=== PATIENT | female | born 1955 | race Caucasian/White ===

== ENCOUNTER 2017-02-08 05:54 | Inpatient (IN) | payer OTHER ==
[2017-02-08] MEDS ORDERED: LR 1,000 ML IV ONE (06:29)
[2017-02-08] MEDS ORDERED: THROMBIN (BOVINE) 5,000 UNIT VIAL TP ONE (06:32)
[2017-02-08] MEDS ORDERED: BUPIVACAINE/EPI 0.25% 30 ML SDV ONE (06:33)
[2017-02-08] MEDS ORDERED: BACITRACIN 50,000 UNITS/10 ML SYR IRR ONE (06:33)
[2017-02-08] MEDS ORDERED: DEXMEDETOMIDINE HCL 400 MCG in NS 100 ML IV SCH (07:00)
[2017-02-08] MEDS ORDERED: TRANEXAMIC ACID 800 MG in NS 100 ML IV ONE ×2 (07:00→07:30)
[2017-02-08] MEDS ORDERED: HYDROmorphONE/DILAUDID 2 MG/ML INJ ONE (07:18)
[2017-02-08] MEDS ORDERED: PROPOFOL/EMULSION 500 MG/50 ML BOTTLE IV ONE ×3 (07:18→11:50)
[2017-02-08] MEDS ORDERED: traMADol 50 MG TAB PO PRN (07:34)
[2017-02-08] MEDS ORDERED: HYOSCYAMINE SULFATE 0.125 MG TAB PO PRN (07:34)
[2017-02-08] MEDS ORDERED: ACETAMINOPHEN 325 MG TAB PO PRN (07:35)
[2017-02-08] MEDS ORDERED: MAGNESIUM HYDROXIDE 30 ML UDCUP PO PRN (07:35)
[2017-02-08] MEDS ORDERED: DIAZEPAM 5 MG TAB PO PRN (07:35)
[2017-02-08] MEDS ORDERED: HYDROmorphONE/DILAUDID 1 MG/ML SYR IVP PRN (07:35)
[2017-02-08] MEDS ORDERED: ONDANSETRON 4 MG/2 ML VIAL IVP PRN (07:35)
[2017-02-08] MEDS ORDERED: TEMAZEPAM 15 MG CAP PO PRN (07:35)
[2017-02-08] MEDS ORDERED: NALOXONE HCL 0.4 MG/ML INJ IVP PRN (07:35)
[2017-02-08] MEDS ORDERED: HYDROmorphONE/DILAUDID 6 MG/30 ML PCA IV PRN (07:35)
[2017-02-08] MEDS ORDERED: POLYETHYLENE GLYCOL 3350 17 GM PKT PO PRN (07:35)
[2017-02-08] MEDS ORDERED: diphenhydrAMINE 25 MG CAP PO PRN (07:35)
[2017-02-08] MEDS ORDERED: DIAZEPAM 10 MG/2 ML SYR IVP PRN (07:35)
[2017-02-08] MEDS ORDERED: ONDANSETRON DISINTEGRATING 4 MG TAB PO PRN (07:35)
[2017-02-08] MEDS ORDERED: BISACODYL 10 MG SUPP PR PRN (07:35)
[2017-02-08] MEDS ORDERED: LACTULOSE 20 GM/30 ML UDCUP PO PRN (07:35)
[2017-02-08] MEDS ORDERED: NS W/ 20 KCl/L 1,000 ML IV SCH (07:45)
[2017-02-08] MEDS ORDERED: ceFAZolin 2 GM/DEXTROSE 100 ML IV ONE (08:00)
[2017-02-08] MEDS ORDERED: ROCURONIUM 50 MG/5 ML VIAL ONE (08:00)
[2017-02-08] MEDS ORDERED: DEXAMETHASONE 4 MG/ML VIAL ONE ×2 (08:00)
[2017-02-08] MEDS ORDERED: epHEDrine SULFATE 10 MG/ML SYR ONE (08:01)
[2017-02-08] MEDS ORDERED: NON-FORMULARY NEW DRUG (Omeprazole [Omeprazole] 40 MG) PO SCH (09:00)
[2017-02-08] MEDS ORDERED: PROPOFOL 200 MG/20 ML VIAL ONE (10:35)
[2017-02-08] MEDS ORDERED: ONDANSETRON 4 MG/2 ML VIAL ONE (11:38)
--- NOTE | 2017-02-08 13:00 | SOAPPROG ---
SOAP Progress Note Assessment/Plan: Post Op Visit: S: Awake and alert. NAD. Pt with expected lower back pain O: AFVSS/PERRLA/EOMI no droop CN 2-12 grossly intact +lt touch 5/5 BUE/BLE = CDI SHIVA in place A/P: 61 yo female that is s/p TLIF at L4/5 and L5/S1 -orders in place -call with any questions or concerns -take medications as directed -pt seen by Dr Martinez as well 02/08/17 12:57 Objective: Vital Signs Temp Pulse Resp BP Pulse Ox 14 81/59 L 98 02/08/17 12:50 02/08/17 12:46 02/08/17 12:50 02/07/17 02/08/17 02/09/17 05:59 05:59 05:59 Intake Total 1400 Output Total 540 Balance 860 ICD10 Worksheet Patient Problems: Problems Problem Status Onset Arthrodesis status Acute Lumbar radicular pain Acute Lumbar stenosis Acute - ICD10 Problem Qualifiers (1) Lumbar stenosis (2) Lumbar radicular pain (3) Arthrodesis status
[2017-02-08] MEDS ORDERED: fentaNYL 100 MCG/2 ML INJ ONE (13:39)
[2017-02-08] MEDS ORDERED: HYDROCODONE/APAP 10/325 TAB ONE ×2 (13:40→18:20)
[2017-02-08] MEDS ORDERED: NALOXONE HCL 0.4 MG/ML INJ ONE (14:02)
--- NOTE | 2017-02-08 14:17 | GOP ---
[f rep st] OPERATIVE REPORT DATE OF OPERATION: 02/08/2017 SURGEON: Varun Martinez MD RUBBER DOWN: Idris Stone PA-C PREOPERATIVE DIAGNOSIS: Lumbar spondylolisthesis L4-5, severe facet arthropathy bilaterally at L4-5 . Prior surgery, right L5-S1. Lumbar degenerative disk disease L4-5, L5-S1. Right synovial cyst L 4-5. POSTOPERATIVE DIAGNOSIS: Lumbar spondylolisthesis L4-5, severe facet arthropathy bilaterally at L4- 5. Prior surgery, right L5-S1. Lumbar degenerative disk disease L4-5, L5-S1. Right synovial cyst L4-5. PROCEDURE PERFORMED: Posterolateral and intervertebral arthrodesis L4-5, L5-S1 with decompression b ilaterally at L4-5 and left-side L5-S1 (21628, [id number]), posterior segmental instrumentation L4, L5, S 1 ([id number]), placement of biomechanical intervertebral device L4-5, L5-S1, same incision bone graft de jesus rvest, microscope, spinal stereotaxy. FINDINGS: ESTIMATED BLOOD LOSS: 200 cc. INDICATIONS: The patient is a 61-year-old with a prior history of a right L5-S1 microdiskectomy, pr esented with terrible right leg pain, more so than left, with spondylolisthesis at L4-5 and a large right synovial cyst. She had a prior right hemilaminectomy at L5-S1, and a small central disk protr usion there, but collapse of the neural foramen and disk space at L5-S1 and spondylolisthesis at L4- 5, and I suggested a 2-level fusion. The risk of nerve injury, spinal fluid leak, continued symptom s, pseudoarthrosis, and the possible need for future surgery and adjacent segment disease was discus sed. She knew there was a chance surgery would fail to eliminate her symptoms, and she wanted to pr oceed despite these risks. DESCRIPTION OF PROCEDURE: The patient was taken to the operating room, placed in supine position. General anesthesia was begun. She was flipped prone onto the Nadir table. Care was taken to pad all points of contact. Her back was sterilely prepped and draped in usual fashion. The O-arm was i ntroduced sterilely on the field. We made a 6 cm incision above the L4-5, L5-S1 interspace. The subcutaneous tissue was dissected usi ng Bovie cautery down through the fascia, and a subperiosteal dissection was made down the L4-5, S1 lamina. There was a right hemilaminectomy at L5-S1. We exposed the transverse processes of L4, L5, and sacrum, denuded the L4-5, L5-S1 facet joints, and decorticated them for a posterolateral arthro desis. We tested Stealth reference frame, and using frameless Stealth stereotaxy, we placed pedicle screws bilaterally at L4, L5, and the sacrum. They all stimulated at acceptable levels. We used 3 D imaging to confirm their position within the pedicles, and there was no evidence of breach. We then took 55 mm rods, placed them down over the screws, reduced the kevin into the L4 screw, which reduced the spondylolisthesis by a few millimeters. We distracted L4-5 and the sacrum, and removed all the soft tissue, the bone, L4-5 and the sacrum, harvested the inferior L4 spinous process for au tologous grafting purposes, harvested the entire L5 spinous process for autologous grafting purposes . Under the scope, we did a bilateral laminectomy of L4-L5, and decompressed the thecal sac, and a lef t hemilaminectomy at L5-S1. A nice decompression was obtained, and we worked our way up toward L4-5 and on the left-hand side; a great decompression was obtained there. There was severe stenosis. On the right-hand side, there was a large synovial cyst, and it was firmly adherent to the dura and could not be totally . We worked our way into the neural foramen, identified the exiting L 4 nerve root, decompressed the traversing L5 root, and then removed all the contents of the synovial cyst, and left the ventral portion of the cyst where it was stuck to the dura and allowed it to rem ain on the dura itself. Under the scope, we removed the L4-5 disk, removed the cartilaginous endpla hugo, roughened the subchondral bone to create arthrodesis. We sized the space and chose a 9 x 28 mm expandable device for that space. We then did likewise fro m the left-hand side at L5-S1. We removed the disk and the cartilaginous endplates. We sized the s pace and chose a 7 x 23 mm expandable device for that level. We packed bone autograft in both disk spaces and a BMP sponge, and we then inserted the devices and expanded them under fluoroscopic gris nce. They were in excellent position. We were happy with the devices, and they were well away from the nerve root. We confirmed this both visually and with fluoroscopic images. We then finished decorticating all the remaining posterolateral bone bilaterally, placed a subfascia l drain, and then closed the incision in multiple layers using Vicryl sutures. Running PDS was plac ed in the skin itself. There was no complication. COMPLICATIONS: None. HARDWARE USED: [employer] Solera pedicle screws. /[id number]/MODL
[2017-02-08] MEDS ORDERED: DIAZEPAM 10 MG/2 ML SYR ONE (14:55)
[2017-02-08] MEDS ORDERED: METHOCARBAMOL 750 MG TAB ONE ×2 (14:55→18:37)
[2017-02-08] MEDS ORDERED: CEFAZOLIN 1 GM/DEXTROSE/50 ML BAG IV ONE (15:55)
[2017-02-08] MEDS ORDERED: HYDROmorphONE/DILAUDID 1 MG/ML SYR ONE (16:27)
[2017-02-08] MEDS: morphINE SR 15 MG TAB PO SCH ×2 (19:37→21:02)
[2017-02-08] MEDS: GABAPENTIN 300 MG CAP PO SCH ×2 (19:37→21:01)
[2017-02-08] MEDS: LEFLUNOMIDE 20 MG TAB PO SCH (19:37)
[2017-02-08] MEDS: FAMOTIDINE 20 MG/NACL 50 ML IV SCH ×2 (19:37→21:02)
[2017-02-08] MEDS: ATORVASTATIN CALCIUM 40 MG TAB PO SCH (19:37)
[2017-02-08] MEDS: CYCLOSPORINE 0.05% 1 EACH BOX EACHEYE SCH ×2 (19:37→21:08)
[2017-02-08] MEDS: traMADol 50 MG TAB PO SCH (19:38)
[2017-02-08] MEDS: PSYLLIUM HUSK PO SCH (19:38)
[2017-02-08] MEDS: SENNOSIDES/DOCUSATE SODIUM TAB PO SCH ×2 (19:38→21:01)
[2017-02-08] MEDS: SERTRALINE HCL 50 MG TAB PO SCH (19:38)
[2017-02-08] MEDS: HYDROCODONE/APAP 10/325 TAB PO PRN (21:00)
[2017-02-08] MEDS: ACETAMN/DIPHENHYDRAMINE 500/25MG TAB PO SCH (21:01)
[2017-02-09] MEDS: HYDROCODONE/APAP 10/325 TAB PO PRN ×7 (00:29→20:53)
[2017-02-09] MEDS: METHOCARBAMOL 750 MG TAB PO PRN ×4 (00:30→18:17)
[2017-02-09 05:16] LABS: % IMMATURE GRANULYOCYTES 0.5 % (0.0-1.1); ABSOLUTE IMMATURE GRANULOCYTES 0.05 10^3/uL (0.00-0.10); ADD DIFF? NO; ADD MORPH? NO; ADD SCAN? NO; ATYPICAL LYMPHOCYTE FLAG 0 (0-99); FRAGMENT RBC FLAG 0 (0-99); HEMATOCRIT 30.7 % (38.0-47.0); HEMOGLOBIN 9.6 g/dL (12.6-16.3); LEFT SHIFT FLG 0 (0-99); LIPEMIA HEMOLYSIS FLAG 80 (0-99); MEAN CELL HEMOGLOBIN 28.6 pg (27.9-34.1); MEAN CELL HEMOGLOBIN CONCENTR. 31.3 g/dL (32.4-36.7); MEAN CELL VOLUME 91.4 fL (81.5-99.8); MEAN PLATELET VOLUME 11.1 fL (8.7-11.7); PLATELET CLUMPS FLAG 0 (0-99); PLATELET COUNT 215 10^3/uL (150-400); RED BLOOD CELL COUNT 3.36 10^6/uL (4.18-5.33); RED CELL DISTRIBUTION WIDTH 13.6 % (11.5-15.2)
[2017-02-09 05:33] LABS: ANION GAP 7 mEq/L (8-16); CALCIUM 8.6 mg/dL (8.5-10.4); CARBON DIOXIDE 24 mEq/l (22-31); CHLORIDE 109 mEq/L (97-110); CREATININE 0.7 mg/dL (0.6-1.0); GLOMERULAR FILTRATION RATE > 60; GLUCOSE 96 mg/dL (70-100); POTASSIUM 4.5 mEq/L (3.5-5.2); SODIUM 140 mEq/L (134-144)
[2017-02-09] MEDS: oxyCODONE IR 5 MG TAB PO PRN ×2 (05:47→16:10)
[2017-02-09] MEDS: traMADol 50 MG TAB PO SCH (08:48)
[2017-02-09] MEDS: morphINE SR 15 MG TAB PO SCH ×2 (08:48→20:53)
[2017-02-09] MEDS: CYCLOSPORINE 0.05% 1 EACH BOX EACHEYE SCH ×2 (08:50→21:14)
[2017-02-09] MEDS: ATORVASTATIN CALCIUM 40 MG TAB PO SCH (08:50)
[2017-02-09] MEDS: GABAPENTIN 300 MG CAP PO SCH ×2 (08:51→20:53)
[2017-02-09] MEDS: FAMOTIDINE 20 MG TAB PO SCH ×2 (08:51→20:53)
[2017-02-09] MEDS: PANTOPRAZOLE SODIUM 40 MG TAB PO SCH (08:51)
[2017-02-09] MEDS: SENNOSIDES/DOCUSATE SODIUM TAB PO SCH ×2 (08:51→20:53)
[2017-02-09] MEDS: SERTRALINE HCL 50 MG TAB PO SCH (08:51)
[2017-02-09] MEDS: PSYLLIUM HUSK PO SCH (08:52)
[2017-02-09] MEDS ORDERED: NON-FORMULARY NEW DRUG (Omeprazole [Omeprazole] 40 MG) PO SCH (09:00)
--- NOTE | 2017-02-09 09:16 | NEUSURGPN ---
Assessment/Plan: S: Doing well. Has some residual leg pain and some hand numbness that is getting better. Had a rough night but better when sitting. Voiding well. O: AFVSS/PERRLA/EOMI +lt touch 5/5 BUE/BLE = CDI SHIVA in place A/P: 61 yo female that is s/p TLIF at L4/5 and L5/S1 -Neuro stable and doing well -Optimize pain management -X-rays pending today -Remove SHIVA today -PT/OT -Dispo later today or more likely tomorrow after cleared by therapies -pt seen by Dr Martinez as well Catheter Insertion Date: 02/08/17 - Physician Discussed Patient with : Juan Patient Seen by : Juan Neurosurgery Physical Exam - Vitals, I&O, Labs I and O 02/08/17 02/09/17 02/10/17 05:59 05:59 05:59 Intake Total 3655 Output Total 3040 250 Balance 615 -250 Weight 80.286 kg Intake: Oral (ml) 480 IV Intake (ml) 2400 IV Infused (ml) 775 Famotidine 20 mg/NaCl 50 50 ml @ 200 mls/hr IV Q12HRS JANET Rx#:[id number] NS W/ 20 KCl/L 1,000 ml @ 675 75 mls/hr IV CONT JANET Rx #:[id number] ceFAZolin 1 GM/DEXTROSE 50 50 ml @ 200 mls/hr IV Q8HRS JANET Rx#:[id number] Output: Urine (ml) 2610 250 Bedside Commode 250 Catheter 2610 Estimated Blood Loss (ml) 200 Wound Drainage (ml) 230 Back Nadir Miranda 230 Other: Number of Voids Bedside Commode 1 Vital Signs Temp Pulse Resp BP Pulse Ox 37.2 C 72 16 138/85 H 98 02/09/17 07:40 02/09/17 07:40 02/09/17 07:40 02/09/17 07:40 02/09/17 07:40 Laboratory Results 02/09/17 04:35 02/09/17 04:35 ICD10 Worksheet Patient Problems: Problems Problem Status Onset Arthrodesis status Acute Lumbar radicular pain Acute Lumbar stenosis Acute
[2017-02-09] MEDS: LEFLUNOMIDE 20 MG TAB PO SCH (11:43)
[2017-02-09] MEDS: ACETAMN/DIPHENHYDRAMINE 500/25MG TAB PO SCH (21:14)
[2017-02-10] MEDS: HYDROCODONE/APAP 10/325 TAB PO PRN ×2 (00:59→06:12)
[2017-02-10] MEDS: METHOCARBAMOL 750 MG TAB PO PRN ×2 (00:59→08:19)
[2017-02-10 07:35] VITALS: BP 110/68; PULSE 88; RESP 14; TEMP 98.9; O2SAT 92
--- NOTE | 2017-02-10 07:53 | NEUSURGPN ---
Date of Surgery: 02/08/17 Post Op Day: 2 Assessment/Plan: 61 yo female that is s/p TLIF at L4/5 and L5/S1 -Neuro stable and doing well -pain controlled -X-rays stable -PT/OT -Wear brace when out of bed -Discharge to home today Subjective: Sitting up in chair this morning. No LE symptoms. Doing well. Objective: Awake. Alert. PERRL. EOMI Following commands Muscle strength full at 5/5 Sensation intact incision with dressing c/d/i Catheter Insertion Date: 02/08/17 - Physician Discussed Patient with Dr.: Juan Neurosurgery Physical Exam - Vitals, I&O, Labs I and O 02/09/17 02/10/17 02/11/17 05:59 05:59 05:59 Intake Total 3655 300 Output Total 3040 650 Balance 615 -350 Weight 80.286 kg Intake: Oral (ml) 480 300 IV Intake (ml) 2400 IV Infused (ml) 775 Famotidine 20 mg/NaCl 50 50 ml @ 200 mls/hr IV Q12HRS JANET Rx#:[id number] NS W/ 20 KCl/L 1,000 ml @ 675 75 mls/hr IV CONT JANET Rx #:[id number] ceFAZolin 1 GM/DEXTROSE 50 50 ml @ 200 mls/hr IV Q8HRS JANET Rx#:[id number] Output: Urine (ml) 2610 650 Bedside Commode 250 Catheter 2610 Toilet 400 Estimated Blood Loss (ml) 200 Wound Drainage (ml) 230 Back Nadir Miranda 230 Other: Number of Voids Bedside Commode 1 Toilet 3 Vital Signs Temp Pulse Resp BP Pulse Ox 37.2 C 88 14 110/68 92 02/10/17 07:34 02/10/17 07:34 02/10/17 07:34 02/10/17 07:34 02/10/17 07:34 Laboratory Results 02/09/17 04:35 02/09/17 04:35 ICD10 Worksheet Patient Problems: Problems Problem Status Onset Arthrodesis status Acute Lumbar radicular pain Acute Lumbar stenosis Acute
[2017-02-10] MEDS: SENNOSIDES/DOCUSATE SODIUM TAB PO SCH (08:17)
[2017-02-10] MEDS: LEFLUNOMIDE 20 MG TAB PO SCH (08:17)
[2017-02-10] MEDS: PANTOPRAZOLE SODIUM 40 MG TAB PO SCH (08:18)
[2017-02-10] MEDS: FAMOTIDINE 20 MG TAB PO SCH (08:18)
[2017-02-10] MEDS: morphINE SR 15 MG TAB PO SCH (08:18)
[2017-02-10] MEDS: SERTRALINE HCL 50 MG TAB PO SCH (08:18)
[2017-02-10] MEDS: ATORVASTATIN CALCIUM 40 MG TAB PO SCH (08:18)
[2017-02-10] MEDS: GABAPENTIN 300 MG CAP PO SCH (08:18)
[2017-02-10] MEDS: traMADol 50 MG TAB PO SCH (08:19)
[2017-02-10] MEDS: CYCLOSPORINE 0.05% 1 EACH BOX EACHEYE SCH (08:24)
[2017-02-10] MEDS: PSYLLIUM HUSK PO SCH (08:25)
[2017-02-11] MEDS ORDERED: ENOXAPARIN 40 MG/0.4 ML SYR SC SCH (09:00)
== END 2017-02-10 10:35 | disposition home or self-care (01) | DRG 460 ==
LOC: F2N 05:54 → F3N 16:00
PROVIDERS: ADMIT Neurological Surgery; ATTEND Neurological Surgery
PROC: 0SB20ZZ Excision of Lumbar Vertebral Disc, Open Approach (ICD-10-PCS; principal; 2017-02-08 07:30)
PROC: 3E0U0GB Introduction of Recombinant Bone Morphogenetic Protein into Joints, Open Approach (ICD-10-PCS; principal; 2017-02-08 07:30)
PROC: 0SG3071 Fusion of Lumbosacral Joint with Autologous Tissue Substitute, Posterior Approach, Posterior Column, Open Approach (ICD-10-PCS; principal; 2017-02-08 07:30)
PROC: 0SG30AJ Fusion of Lumbosacral Joint with Interbody Fusion Device, Posterior Approach, Anterior Column, Open Approach (ICD-10-PCS; principal; 2017-02-08 07:30)
PROC: 0SG00AJ Fusion of Lumbar Vertebral Joint with Interbody Fusion Device, Posterior Approach, Anterior Column, Open Approach (ICD-10-PCS; principal; 2017-02-08 07:30)
PROC: 0SB40ZZ Excision of Lumbosacral Disc, Open Approach (ICD-10-PCS; principal; 2017-02-08 07:30)
PROC: 0SG0071 Fusion of Lumbar Vertebral Joint with Autologous Tissue Substitute, Posterior Approach, Posterior Column, Open Approach (ICD-10-PCS; principal; 2017-02-08 07:30)
PROC: 00NY0ZZ Release Lumbar Spinal Cord, Open Approach (ICD-10-PCS; principal; 2017-02-08 07:30)
DX: M43.17 Spondylolisthesis, lumbosacral region (principal); M51.37 Other intervertebral disc degeneration, lumbosacral region; M54.16 Radiculopathy, lumbar region; M47.12 Other spondylosis with myelopathy, cervical region
CPT/HCPCS: 97161-GP; 97166-GO; C1713; G8978-GP-CI; G8979-GP-CI; G8980-GP-CI; G8987-GO-CI; G8988-GO-CI; G8989-GO-CI; J0690; J1100; J1170; J2310; J2405; J2704; J3010